=== PATIENT | male | born 1985 | race Caucasian/White ===

== ENCOUNTER 2017-05-10 10:06 | Inpatient (IN) | payer OTHER ==
[2017-05-10 11:13] VITALS: BMI 30.9
--- NOTE | 2017-05-10 12:46 | HP ---
COWS - Scale Resting Pulse: 1= [place] 81-100 Sweatin= Chills/Flushing Restless Observation: 3= Extraneous Movement Pupil Size: 2= Moderately Dilated Bone or Joint Aches: 4=Acute Joint/Muscle Pain Runny Nose/ Eye Tearin= Runny Nose/Eyes GI Upset > 30mins: 3= Vomiting/Diarrhea (N/V) Tremor Observation: 1= Tremor [place], Not Seen Yawning Observation: 1= 1-2x During Session Anxiety or Irritability: 2=Irritable/Anxious Goose Flesh Skin: 0=Smooth Skin COWS Score: 20 Admission ROS S - [facility] Chief Complaint: WITHDRAWAL SX FROM HEROIN Allergies/Adverse Reactions: Allergies Allergy/AdvReac Type Severity Reaction Status Date / Time No Known Allergies Allergy Verified 08/01/16 11:21 History of Present Illness: 31 Y/O MALE WITH A HX OF HEROIN,COCAINE DEPENDENCE AND PCP USE SEEKING DETOX TX. Exam Limitations: No Limitations - Ebola screening Have you traveled outside of the country in the last 21 days: No (N) Have you had contact with anyone from an Ebola affected area: No Have you been sick,other than usual withdrawal symptoms: No Do you have a fever: No - Review of Systems Constitutional: Chills, Night Sweats, Changes in sleep, Unintentional Wgt. Loss EENT: reports: Blurred Vision, Tearing, Nose Congestion Respiratory: reports: Shortness of Breath (ASTHMA HX), Wheezing Cardiac: reports: Lightheadedness GI: reports: Constipated, Diarrhea, Nausea, Vomiting, Abdominal cramping : reports: No Symptoms Reported Musculoskeletal: reports: Back Pain, Joint Pain, Muscle Pain Integumentary: reports: No Symptoms Reported Neuro: reports: Headache, Unsteady Gait, Dizziness Endocrine: reports: No Symptoms Reported Hematology: reports: No Symptoms Reported Psychiatric: reports: Orientated x3, Anxious Other Systems: Reviewed and Negative Patient History - Patient Medical History Hx Anemia: No Hx Asthma: Yes (MDI) Hx Chronic Obstructive Pulmonary Disease (COPD): No Hx Cardiac Disorders: No Hx Hypertension: No Hx Hypercholesterolemia: No HX Cerebrovascular Accident: No Hx Seizures: No Hx Diabetes: No Hx Gastrointestinal Disorders: Yes (TAKES TUMS) Hx Genitourinary Disorders: No Hx Sexually Transmitted Disorders: No Hx Renal Disease (ESRD): No Hx Thyroid Disease: No Hx Human Immunodeficiency Virus (HIV): No (NEGATIVE HX) Hx Hepatitis C: No Hx Depression: No (ANXIETY) Hx Suicide Attempt: No (DENIES) Hx Schizophrenia: No - Patient Surgical History Past Surgical History: Yes Hx Neurologic Surgery: No Hx Cataract Extraction: No Hx Cardiac Surgery: No Hx Lung Surgery: No Hx Breast Surgery: No Hx Breast Biopsy: No Hx Abdominal Surgery: Yes (ABD HERNIA REPAIR IN 2015) Hx Appendectomy: No Hx Cholecystectomy: No Hx Genitourinary Surgery: No Hx Orthopedic Surgery: No Anesthesia Reaction: No - PPD History Previous Implant?: Yes Documented Results: Negative w/o proof PPD to be Administered?: Yes - Reproductive History Patient is a Female of Child Bearing Age (11 -55 yrs old): No (MALE) - Smoking Cessation Smoking history: Current every day smoker Have you smoked in the past 12 months: Yes Aproximately how many cigarettes per day: 3 Hx Chewing Tobacco Use: No Initiated information on smoking cessation: Yes 'Breaking Loose' booklet given: 05/10/17 - Substance & Tx. History Hx Alcohol Use: No Hx Substance Use: Yes (HEROIN/COCAINE/PCP) Substance Use Type: Cocaine, Heroin Hx Substance Use Treatment: Yes (LAST TX AT [facility]) - Substances Abused Heroin Route: Injection Frequency: Daily Amount used: 10 BAGS Age of first use: 22 Date of Last Use: 05/09/17 Oxycontin Route: Oral Frequency: Daily Amount used: 1/30MG Age of first use: 22 Date of Last Use: 05/08/17 Family Disease History - Family Disease History Family History: Denies Admission Physical Exam S - Vital Signs Vital Signs: Vital Signs - 24 hr 05/10/17 11:12 Temperature 96 F L Pulse Rate 83 Respiratory 18 Rate Blood Pressure 135/75 - Physical General Appearance: Yes: Moderate Distress, Irritable, Anxious HEENTM: Yes: EOMI, Normocephalic, CRYSTAL, Pharynx Normal, Nasal Congestion, Rhinorrhea Respiratory: Yes: Chest Non-Tender, Lungs Clear, Normal Breath Sounds, No Respiratory Distress Neck: Yes: No masses,lesions,Nodules, Supple, Trachea in good position Breast: Yes: Breast Exam Deferred Cardiology: Yes: Regular Rhythm, Regular Rate, S1, S2 Abdominal: Yes: Normal Bowel Sounds, Non Tender, Soft Genitourinary: Yes: Other (N/C) Back: Yes: Within Normal Limits Musculoskeletal: Yes: full range of Motion, Gait Steady Extremities: Yes: Normal Range of Motion, Non-Tender Neurological: Yes: wiping cloth cutter II-XII NML intact, Fully Oriented, Alert, Motor Strength 5/5 Integumentary: Yes: Dry, Warm Lymphatic: Yes: Within Normal Limits - Diagnostic (1) Opioid dependence with withdrawal Current Visit: Yes Status: Acute (2) Cocaine dependence, uncomplicated Current Visit: Yes Status: Acute (3) PCP dependence Current Visit: Yes Status: Acute (4) Asthma Current Visit: Yes Status: Acute Qualifiers: Asthma severity: unspecified severity Asthma persistence: unspecified Asthma complication type: uncomplicated Qualified Code(s): J45.909 - Unspecified asthma, uncomplicated (5) History of heartburn Current Visit: Yes Status: Chronic Cleared for Admission [facility] - Detox or Rehab [facility] Level of Care: Medically Managed Detox Regimen/Protocol: Methadone [facility] Breath Alcohol Content Breath Alcohol Content: 0 Urine Drug Screen - Results Drug Screen Negative: No Urine Drug Screen Results: FRANCISCA-Cocaine, OPI-Opiates, PCP-Phencyclidine
[2017-05-10] MEDS ORDERED: MAGNESIUM CITRATE 300 ML BOTTLE PO PRN (12:57)
[2017-05-10] MEDS ORDERED: NICOTINE POLACRILEX 2 MG GUM BUC PRN (12:57)
[2017-05-10] MEDS ORDERED: MENTHOL/PHENOL 1 EACH UD MM PRN (12:57)
[2017-05-10] MEDS ORDERED: IBUPROFEN 400 MG TABLET (FP) PO PRN (12:57)
[2017-05-10] MEDS ORDERED: P-EPHED 60MG/TRIPROLIDI 2.5MG TABLET PO PRN (12:57)
[2017-05-10] MEDS ORDERED: MAGNESIUM HYDROX 2400MG/30ML ORAL SUSPENSION 30 ML CUP PO PRN (12:57)
[2017-05-10] MEDS ORDERED: guaiFENesin/D-METHORPHAN HB 10 ML UNIT-DOSE CUPS PO PRN (12:57)
[2017-05-10] MEDS ORDERED: ALBUTEROL SO4 18 GM HFA INHALER IH PRN (13:00)
[2017-05-10] MEDS ORDERED: METHADONE HCL 10 MG TABLET (FOR DETOX USE ONLY) PO ONE ×2 (13:55→23:00)
[2017-05-10] MEDS: CYCLOBENZAPRINE HCL 10 MG TABLET (FP) PO SCH ×2 (14:04→22:12)
[2017-05-10] MEDS: diazePAM 5 MG TABLET PO PRN ×2 (14:04→22:12)
[2017-05-10] MEDS: NICOTINE 14 MG/24 HOURS TOPICAL PATCH TD SCH (16:34)
[2017-05-10 17:12] LABS: HEMATOCRIT 42.2 % (35.4-49); HEMOGLOBIN 14.6 GM/dL (11.7-16.9); MCH 29.9 pg (25.7-33.7); MCHC 34.4 g/dl (32.0-35.9); MEAN CELL VOLUME 86.8 fl (80-96); MEAN PLT VOLUME 8.9 fl (7.5-11.1); PLATELET COUNT 217 K/MM3 (134-434); RBC 4.87 M/mm3 (4.00-5.60); RDW 13.2 % (11.9-15.9); WHITE BLOOD COUNT 7.8 K/mm3 (4.0-10.0)
[2017-05-10 17:29] LABS: CHLORIDE 106 mmol/L (98-107); POTASSIUM 3.9 mmol/L (3.5-5.1); SODIUM 141 mmol/L (136-145)
[2017-05-10 17:38] LABS: ALBUMIN 4.1 g/dl (3.4-5.0); ALK PHOS 77 U/L (45-117); ANION GAP 8 (8-16); BILIRUBIN,TOTAL 0.5 mg/dL (0.2-1.0); BLOOD UREA NITROGEN 20 mg/dL (7-18); CALCIUM 8.8 mg/dL (8.5-10.1); CO2 27 mmol/L (21-32); CREATININE 1.2 mg/dL (0.7-1.3); GLUCOSE,RANDOM 124 mg/dL (74-106); SGOT/AST 50 U/L (15-37); SGPT/ALT 56 U/L (12-78)
--- NOTE | 2017-05-10 17:41 | CONSULT ---
[facility] Psychiatric Consult - Data Date of interview: 05/10/17 Admission source: [facility] Identifying data: Readmission to [facility] for this 31 y/o male seeking detox treatment on for heroin,cocaine and phencyclidine dependence.Patient is single,a father of two,domiciled,unemployed and reportedly supported by relatives. Substance Abuse History: Discussed in this session.Patient,reluctantly,admits to active usage of cocaine,heroin and PCP on a daily basis. See details in the current [facility] report : Smoking history: Current every day smoker. Have you smoked in the past 12 months: Yes. Aproximately how many cigarettes per day: 3. Hx Chewing Tobacco Use: No. Initiated information on smoking cessation: Yes. 'Breaking Loose' booklet given: 05/10/17. - Substance & Tx. History. Hx Alcohol Use: No. Hx Substance Use: Yes (HEROIN/COCAINE/PCP). Substance Use Type: Cocaine, Heroin. Hx Substance Use Treatment: Yes (LAST TX AT [facility]). - Substances Abused. Heroin. Route: Injection. Frequency: Daily. Amount used: 10 BAGS. Age of first use: 22. Date of Last Use: 05/09/17. Oxycontin. Route: Oral. Frequency: Daily. Amount used: 1/30MG. Age of first use: 22. Date of Last Use: 05/08/17 Medical History: Bronchial asthma and a history of abdominal herniorraphy (2014) . Psychiatric History: Patient denies history of mental illness or psychiatric hospitalizations.Mr Kaur indicates no prior exposure to psychotropic medications or OPD care.No reported history of suicide attempts. Physical/Sexual Abuse/Trauma History: Patient denies. Additional Comment: Urine Drug Screen Results: FRANCISCA-Cocaine, OPI-Opiates, PCP- Phencyclidine.Noted. Mental Status Exam - Mental Status Exam Alert and Oriented to: Time, Place, Person Cognitive Function: Good Patient Appearance: Disheveled (forearms covered with tattoos) Mood: Angry, Hostile, Withdrawn, Irritable Affect: Mood Congruent Patient Behavior: Fatigued, Uncooperative (dismissive of staff,derogatory and profane), Resitive to Care Speech Pattern: Clear, Inappropriate Voice Loudness: Moderately Loud (for a brief period ; patient did react negatively to being called for medications and routine procedures ) Thought Process: Goal Oriented Thought Disorder: Not Present Hallucinations: Denies Suicidal Ideation: Denies Homicidal Ideation: Denies Insight/Judgement: Poor Sleep: Poorly, Difficulty falling asleep Appetite: Good Muscle strength/Tone: Normal Gait/Station: Normal Psychiatric Findings - Problem List ([place] 1, 2,3) (1) Opioid dependence with withdrawal Current Visit: Yes Status: Acute (2) Cocaine dependence, uncomplicated Current Visit: Yes Status: Acute (3) PCP dependence Current Visit: Yes Status: Acute (4) Nicotine dependence Current Visit: Yes Status: Acute (5) Substance induced mood disorder Current Visit: Yes Status: Suspected (6) Personality disorder, unspecified Current Visit: Yes Status: Suspected (7) Insomnia Current Visit: Yes Status: Acute - Initial Treatment Plan Initial Treatment Plan: Previous records are reviewed.Psychoeducation not suitable at this time (a context of adversarial attitude and behavioral dyscontrol).Offered but patient is not receptive to teaching.Detoxification initiated on admission.Patient has clearly DECLINED any psychotropic drugs not necessary for detoxification purposes.Limits set.Observation.
[2017-05-10 17:45] LABS: URINE APPEARANCE CLEAR; URINE BILIRUBIN NEGATIVE (NEGATIVE); URINE BLOOD NEGATIVE (NEGATIVE); URINE COLOR YELLOW; URINE GLUCOSE (UA) NEGATIVE (NEGATIVE); URINE KETONE TRACE (NEGATIVE); URINE LEUK ESTERASE NEGATIVE (NEGATIVE); URINE NITRITE NEGATIVE (NEGATIVE); URINE PROTEIN NEGATIVE (NEGATIVE)
[2017-05-10] MEDS: THIAMINE HCL 100 MG TABLET (FP) PO SCH (22:12)
[2017-05-10] MEDS: cloNIDine HCL 0.1 MG TABLET PO SCH (22:12)
[2017-05-11] MEDS: diazePAM 5 MG TABLET PO PRN ×4 (05:40→22:32)
[2017-05-11] MEDS: MAG HYDROX/AL HYDROX/SIMETH 30 ML UNIT-DOSE CUP PO PRN ×2 (05:40→17:16)
[2017-05-11] MEDS: CYCLOBENZAPRINE HCL 10 MG TABLET (FP) PO SCH ×4 (08:07→22:44)
[2017-05-11] MEDS ORDERED: METHADONE HCL 10 MG TABLET (FOR DETOX USE ONLY) PO ONE (10:00)
[2017-05-11] MEDS: cloNIDine HCL 0.1 MG TABLET PO SCH ×3 (10:38→22:42)
[2017-05-11] MEDS: NICOTINE 14 MG/24 HOURS TOPICAL PATCH TD SCH (10:38)
[2017-05-11] MEDS: PRENATAL VITAMINS W/ FOLIC ACID TABLET (FP) PO SCH (10:38)
[2017-05-11] MEDS ORDERED: PNEUMOCOCCAL 23 VACCINE 0.5 ML VIAL IM ONE (12:00)
[2017-05-11] MEDS ORDERED: PNEUMOC 13-VAL CONJ-DIP CRM/PF 0.5 ML DISP.SYRIN IM ONE (12:00)
[2017-05-11] MEDS ORDERED: FLU VACCINE QUAD 60 MCG/0.5 ML (MDV 17-18) IM ONE (12:00)
--- NOTE | 2017-05-11 12:24 | PN ---
BHS COWS - Scale Resting Pulse: 0= [place] 80 or Below Sweatin= Chills/Flushing Restless Observation: 1= Difficult to Sit Still Pupil Size: 0= Normal to Room Light Bone or Joint Aches: 2= Severe Diffuse Aches Runny Nose/ Eye Tearin= Nasal Congestion GI Upset > 30mins: 1= Stomach Cramp Tremor Observation of Outstretched Hands: 0= None Yawning Observation: 1= 1-2x During Session Anxiety or Irritability: 4=Extreme Anxiety Goose Flesh Skin: 3=Piloerection COWS Score: 14 BHS Progress Note (SOAP) Subjective: Stomach Cramping, Fatigue, Anxious, Sweating. Objective: PT. A & O X 3, OBSERVED AMBULATING ON UNIT. NO ACUTE DISTRESS. 05/11/17 12:22 Vital Signs Temperature 97.3 F L 05/11/17 09:27 Pulse Rate 72 05/11/17 09:27 Respiratory Rate 18 05/11/17 09:27 Blood Pressure 105/65 05/11/17 09:27 O2 Sat by Pulse Oximetry (%) Laboratory Tests 05/10/17 05/10/17 05/10/17 13:00 13:00 13:00 WBC 7.8 D RBC 4.87 Hgb 14.6 Hct 42.2 MCV 86.8 MCH 29.9 MCHC 34.4 RDW 13.2 Plt Count 217 D MPV 8.9 Sodium 141 Potassium 3.9 Chloride 106 Carbon Dioxide 27 Anion Gap 8 BUN 20 H D Creatinine 1.2 Creat Clearance w eGFR > 60 Random Glucose 124 H Calcium 8.8 Total Bilirubin 0.5 AST 50 H D ALT 56 Alkaline Phosphatase 77 D Total Protein 7.0 Albumin 4.1 Urine Color Urine Appearance Urine pH Ur Specific [place] Urine Protein Urine Glucose (UA) Urine Ketones Urine Blood Urine Nitrite Urine Bilirubin Urine Urobilinogen Ur Leukocyte Esterase RPR Titer HIV 1&2 Antibody Screen Negative HIV P24 Antigen Negative 05/10/17 05/10/17 13:00 14:30 WBC RBC Hgb Hct MCV MCH MCHC RDW Plt Count MPV Sodium Potassium Chloride Carbon Dioxide Anion Gap BUN Creatinine Creat Clearance w eGFR Random Glucose Calcium Total Bilirubin AST ALT Alkaline Phosphatase Total Protein Albumin Urine Color Yellow Urine Appearance Clear Urine pH 5.0 Ur Specific [place] 1.030 Urine Protein Negative Urine Glucose (UA) Negative Urine Ketones Trace H Urine Blood Negative Urine Nitrite Negative Urine Bilirubin Negative Urine Urobilinogen 2.0 Ur Leukocyte Esterase Negative RPR Titer Nonreactive HIV 1&2 Antibody Screen HIV P24 Antigen LABS NOTED. Assessment: 05/11/17 12:23 WITHDRAWAL SYMPTOMS. Plan: CONTINUE DETOX. INCREASE DAILY PO FLUID INTAKE.
--- NOTE | 2017-05-11 13:13 | EKG ---
Test Reason : Blood Pressure : / mmHG Vent. Rate : 069 BPM Atrial Rate : 069 BPM P-R Int : 118 ms QRS Dur : 094 ms QT Int : 434 ms P-R-T Axes : 038 006 000 degrees QTc Int : 465 ms SINUS RHYTHM WITH MARKED SINUS ARRHYTHMIA NONSPECIFIC T WAVE ABNORMALITY PROLONGED QT ABNORMAL ECG WHEN COMPARED WITH ECG OF 15-OCT-2014 23:34, PREMATURE ATRIAL COMPLEXES ARE NO LONGER PRESENT NONSPECIFIC T WAVE ABNORMALITY NOW EVIDENT IN LATERAL LEADS Confirmed by EDIL ARMSTRONG MD ([id number]) on 05/11/2017 1:12:48 PM Referred By: Confirmed By:EDIL ARMSTRONG MD
[2017-05-11] MEDS: THIAMINE HCL 100 MG TABLET (FP) PO SCH (22:30)
[2017-05-11] MEDS: LOPERAMIDE HCL 2 MG CAPSULE PO PRN (22:31)
[2017-05-11] MEDS: ACETAMINOPHEN 325 MG TABLET (FP) PO PRN (22:32)
[2017-05-12] MEDS: CYCLOBENZAPRINE HCL 10 MG TABLET (FP) PO SCH ×3 (06:35→22:21)
[2017-05-12] MEDS: ACETAMINOPHEN 325 MG TABLET (FP) PO PRN (07:16)
[2017-05-12] MEDS ORDERED: METHADONE HCL 5 MG TABLET (FOR DETOX USE ONLY) PO ONE (10:00)
[2017-05-12] MEDS: PRENATAL VITAMINS W/ FOLIC ACID TABLET (FP) PO SCH (10:28)
[2017-05-12] MEDS: cloNIDine HCL 0.1 MG TABLET PO SCH ×2 (10:28→22:21)
[2017-05-12] MEDS: diazePAM 5 MG TABLET PO PRN ×4 (10:29→22:50)
[2017-05-12] MEDS: LOPERAMIDE HCL 2 MG CAPSULE PO PRN (10:29)
[2017-05-12] MEDS: NICOTINE 14 MG/24 HOURS TOPICAL PATCH TD SCH (10:58)
[2017-05-12] MEDS ORDERED: ONDANSETRON *ODT* 4 MG TABLET SL PRN (12:30)
--- NOTE | 2017-05-12 12:31 | PN ---
BHS COWS - Scale Resting Pulse: 0= [place] 80 or Below Sweatin= Chills/Flushing Restless Observation: 1= Difficult to Sit Still Pupil Size: 0= Normal to Room Light Bone or Joint Aches: 2= Severe Diffuse Aches Runny Nose/ Eye Tearin= None GI Upset > 30mins: 2= Nausea/Diarrhea Tremor Observation of Outstretched Hands: 0= None Yawning Observation: 1= 1-2x During Session Anxiety or Irritability: 4=Extreme Anxiety Goose Flesh Skin: 3=Piloerection COWS Score: 14 BHS Progress Note (SOAP) Subjective: Stomach Cramping, Sweating, Anxious, Fatigue, Nausea / Dry Heaving, Diarrhea. Objective: PT. A & O X 3, OBSERVED AMBULATING ON UNIT. NO ACUTE DISTRESS. 05/12/17 12:32 Vital Signs Temperature 98.8 F 05/12/17 09:26 Pulse Rate 77 05/12/17 09:26 Respiratory Rate 18 05/12/17 09:26 Blood Pressure 115/70 05/12/17 09:26 O2 Sat by Pulse Oximetry (%) Laboratory Tests 05/10/17 05/10/17 05/10/17 13:00 13:00 13:00 WBC 7.8 D RBC 4.87 Hgb 14.6 Hct 42.2 MCV 86.8 MCH 29.9 MCHC 34.4 RDW 13.2 Plt Count 217 D MPV 8.9 Sodium 141 Potassium 3.9 Chloride 106 Carbon Dioxide 27 Anion Gap 8 BUN 20 H D Creatinine 1.2 Creat Clearance w eGFR > 60 Random Glucose 124 H Calcium 8.8 Total Bilirubin 0.5 AST 50 H D ALT 56 Alkaline Phosphatase 77 D Total Protein 7.0 Albumin 4.1 Urine Color Urine Appearance Urine pH Ur Specific [place] Urine Protein Urine Glucose (UA) Urine Ketones Urine Blood Urine Nitrite Urine Bilirubin Urine Urobilinogen Ur Leukocyte Esterase RPR Titer HIV 1&2 Antibody Screen Negative HIV P24 Antigen Negative 05/10/17 05/10/17 13:00 14:30 WBC RBC Hgb Hct MCV MCH MCHC RDW Plt Count MPV Sodium Potassium Chloride Carbon Dioxide Anion Gap BUN Creatinine Creat Clearance w eGFR Random Glucose Calcium Total Bilirubin AST ALT Alkaline Phosphatase Total Protein Albumin Urine Color Yellow Urine Appearance Clear Urine pH 5.0 Ur Specific [place] 1.030 Urine Protein Negative Urine Glucose (UA) Negative Urine Ketones Trace H Urine Blood Negative Urine Nitrite Negative Urine Bilirubin Negative Urine Urobilinogen 2.0 Ur Leukocyte Esterase Negative RPR Titer Nonreactive HIV 1&2 Antibody Screen HIV P24 Antigen LABS NOTED. Assessment: 05/12/17 12:32 WITHDRAWAL SYMPTOMS. Plan: CONTINUE DETOX. PRN ZOFRAN SL FOR NAUSEA. PRN IMMODIUM FOR DIARRHEA. INCREASE DAILY PO FLUID INTAKE.
[2017-05-12] MEDS: MAG HYDROX/AL HYDROX/SIMETH 30 ML UNIT-DOSE CUP PO PRN (19:54)
[2017-05-12] MEDS: THIAMINE HCL 100 MG TABLET (FP) PO SCH (22:21)
[2017-05-13] MEDS: diazePAM 5 MG TABLET PO PRN (05:56)
--- NOTE | 2017-05-13 07:02 | PN ---
S Progress Note Note: informed client was caught stealing employee property. administrative dc
--- NOTE | 2017-05-13 07:06 | DS ---
[facility] Detox Discharge Summary Admission Date: 05/10/17 Discharge Date: 05/13/17 - History Present History: Cocaine Dependence, Opioid Dependence, Pcp Dependence Pertinent Past History: ASTHMA NICOTINE DEP - Physical Exam Results Vital Signs: Vital Signs Temperature 98.1 F 05/12/17 22:30 Pulse Rate 79 05/12/17 22:30 Respiratory Rate 18 05/13/17 03:28 Blood Pressure 127/63 05/12/17 22:30 O2 Sat by Pulse Oximetry (%) Pertinent Admission Physical Exam Findings: WITHDRAWAL SX'S - Treatment Hospital Course: Responded well, Discharged Condition Good - Medication Discharge Medications: Ambulatory Orders Albuterol Sulfate Inhaler - [Ventolin Hfa Inhaler -] 2 inh PO Q4H PRN 08/01/16 - Diagnosis (1) Asthma Current Visit: Yes Status: Acute Qualifiers: Asthma severity: unspecified severity Asthma persistence: unspecified Asthma complication type: uncomplicated Qualified Code(s): J45.909 - Unspecified asthma, uncomplicated (2) Cocaine dependence, uncomplicated Current Visit: Yes Status: Acute (3) Nicotine dependence Current Visit: Yes Status: Acute (4) Opioid dependence with withdrawal Current Visit: Yes Status: Acute (5) PCP dependence Current Visit: Yes Status: Acute (6) History of heartburn Current Visit: Yes Status: Chronic (7) Personality disorder, unspecified Current Visit: Yes Status: Suspected (8) Substance induced mood disorder Current Visit: Yes Status: Suspected - AMA Did Patient Leave Against Medical Advice: No (ADMINISTRATIVE DC; CLIENT CAUGHT STEALING EMPLOYEE PROPERTY)
[2017-05-13 07:27] VITALS: BP 103/61; PULSE 70; TEMP 98.2
[2017-05-13] MEDS: CYCLOBENZAPRINE HCL 10 MG TABLET (FP) PO SCH (07:32)
[2017-05-13] MEDS ORDERED: METHADONE HCL 5 MG TABLET (FOR DETOX USE ONLY) PO ONE (10:00)
[2017-05-14] MEDS ORDERED: METHADONE HCL 10 MG TABLET (FOR DETOX USE ONLY) PO ONE (10:00)
[2017-05-15] MEDS ORDERED: METHADONE HCL 5 MG TABLET (FOR DETOX USE ONLY) PO ONE (06:00)
== END 2017-05-13 07:00 | disposition home or self-care (01) | DRG 773 ==
LOC: YASAS 10:06 → Y3N 12:28
PROVIDERS: ADMIT Internal Medicine; ATTEND Internal Medicine
PROC: HZ2ZZZZ Detoxification Services for Substance Abuse Treatment (ICD-10-PCS; principal; 2017-05-10)
DX: F11.23 Opioid dependence with withdrawal (principal); F14.20 Cocaine dependence, uncomplicated; F16.20 Hallucinogen dependence, uncomplicated; F17.210 Nicotine dependence, cigarettes, uncomplicated; F60.9 Personality disorder, unspecified; F19.24 Other psychoactive substance dependence with psychoactive substance-induced mood disorder; F91.8 Other conduct disorders; J45.909 Unspecified asthma, uncomplicated; G47.00 Insomnia, unspecified; R12 Heartburn
CPT/HCPCS: 36415; 80053; 81003; 85027; 86593; 87389; 90688; 90732; 93005; 93010; G0008; G0009

== ENCOUNTER 2017-05-14 23:31 | Emergency (ER) | payer OTHER ==
--- NOTE | 2017-05-14 23:44 | PDOC ---
History of Present Illness - General History Source: Patient Exam Limitations: No Limitations - History of Present Illness Initial Comments: 05/15/17 00:51 The patient is a year 31 old male, with a significant past medical history of asthma, GERD, cocaine use, PCP use, and heroin use, who presents to the emergency department via ems stating that he passed out (patient is alert and oriented x3 and has alcohol on his breath), and states I don't feel good. Patient has been drinking today and then called EMS. When they arrived he told them that he had been passing out all day. He states that he also has nasal congestion and left his detox treatment AMA from [facility] after one day after having a dispute with the staff. Patient was caught stealing employee property . Since 2012 the patient has a history of drug abuse, suicide attempts, and has been in and out of detox Allergies: none Past surgical history: Hernia repair (2014) Social history: Current everyday smoker, drinks socially, uses cocaine and heroin <Gely Ceron - Last Filed: 05/15/17 00:51> <Jeny Foy - Last Filed: 05/15/17 16:29> - General Chief Complaint: Alcohol intoxication Stated Complaint: SYNCOPE Time Seen by Provider: 05/14/17 23:36 Past History <Gely Ceron - Last Filed: 05/15/17 00:51> - Past Medical History Anemia: No Asthma: Yes (MDI) Cardiac Disorders: No CVA: No COPD: No Diabetes: No GI Disorders: Yes (TAKES TUMS) Disorders: No HTN: No Hypercholesterolemia: No Kidney Stones: No Seizures: No Thyroid Disease: No - Surgical History Abdominal Surgery: Yes (ABD HERNIA REPAIR IN 2014) Appendectomy: No Cardiac Surgery: No Cholecystectomy: No Lung Surgery: No Neurologic Surgery: No Orthopedic Surgery: No - Reproductive History Testicular Surgery: No - Suicide/Smoking/Psychosocial Hx Smoking Status: No Smoking History: Current every day smoker Have you smoked in the past 12 months: Yes Number of Cigarettes Smoked Daily: 3 Information on smoking cessation initiated: No 'Breaking Loose' booklet given: 05/10/17 Hx Alcohol Use: No Drug/Substance Use Hx: Yes (heroin, cocaine) Substance Use Type: Cocaine, Heroin Hx Substance Use Treatment: Yes (LAST TX AT [facility]) <Jeny Foy - Last Filed: 05/15/17 16:29> - Past Medical History Allergies/Adverse Reactions: Allergies Allergy/AdvReac Type Severity Reaction Status Date / Time No Known Allergies Allergy Verified 05/14/17 23:33 Home Medications: Ambulatory Orders NK [No Known Home Medication] 05/15/17 Review of Systems - Review of Systems Able to Perform ROS?: Yes Comments:: 05/15/17 00:53 CONSTITUTIONAL: +"I don't feel well", +passing out Absent: fever, no chills, no fatigue EYES: Absent: visual changes ENT:+Nasal congestion Absent: ear pain, no sore throat CARDIOVASCULAR: Absent: chest pain, no palpitations RESPIRATORY: Absent: cough, no SOB GI: Absent: abdominal pain, no nausea, no vomiting, no constipation, no diarrhea GENITOURINARY: Absent: dysuria, no frequency, no hematuria MUSCULOSKELETAL: Absent: back pain, no arthralgia, no myalgia SKIN: Absent: rash NEURO: Absent: headache <Gely Ceron - Last Filed: 05/15/17 00:51> *Physical Exam - Vital Signs Last Vital Signs Temp Pulse Resp BP Pulse Ox 91 H 18 141/78 98 05/14/17 23:41 05/14/17 23:41 05/14/17 23:41 05/14/17 23:41 - Physical Exam Comments: 05/15/17 00:53 GENERAL: +Alcohol on breath No apparent distress. HEENT: +Nasal congestion Normocephalic, atraumatic. PERRL, EOM intact. CARDIOVASCULAR: Normal S1, S2. Regular rate and rhythm. PULMONARY: Clear to auscultation bilaterally. ABDOMEN: Soft, non-distended, non-tender. EXTREMITIES: Normal ROM in all four extremities. No gross deformities. SKIN: Warm, dry. No rash NEUROLOGICAL: No focal neurological deficits. Alert and oriented. <Gely Ceron - Last Filed: 05/15/17 00:51> - Vital Signs Last Vital Signs Temp Pulse Resp BP Pulse Ox 91 H 18 141/78 98 05/14/17 23:41 05/14/17 23:41 05/14/17 23:41 05/14/17 23:41 <Jeny Foy - Last Filed: 05/15/17 16:29> Medical Decision Making - Medical Decision Making 05/15/17 00:32 This 31-year-old male brought in by ambulance by paramedics who said he walked out of a local deli when the ambulance pulled up. He stated he had been passing out multiple times during the day. He is alert and conversant but has alcohol on breath. He is totally able to participate in his ROS. Social history: occasionally uses etoh, smokes tobacco daily ,single,father of 2 children,domiciled,unemployed. History of using cocaine,heroin and pcp HPI Patient left AMA from the [facility] detox center yesterday after having a dispute with the staff. PMH asthma PSH hernia repair PE no evidence of trauma ekg NSR @ 73 bpm,prolonged QT. No changes from previous ekg done on Apr05/15/17 01:47 pt's alcohol level is negligible PT reassessment <Jeny Foy - Last Filed: 05/15/17 16:29> *DC/Admit/Observation/Transfer - Attestations Scribe Attestion: 05/15/17 00:54 Documentation prepared by POLI Edward, acting as pediatrician/medical doctor for Jeny Foy MD. <Gely Ceron - Last Filed: 05/15/17 00:51> <Jeny Foy - Last Filed: 05/15/17 16:29> Diagnosis at time of Disposition: Syncope - Discharge Dispostion Disposition: HOME Condition at time of disposition: Improved - Referrals Referrals: [facility] [place] [facility] at [place] [Provider Group] - Patient Instructions Printed Discharge Instructions: DI for Syncope in Adults (Fainting) Additional Instructions: Return to the emergency department immediately with ANY new, persistent or worsening symptoms. You MUST call and follow up with your doctor tomorrow for further evaluation of your symptoms. Results were discussed with you. Please make sure your doctor reviews the results of your emergency evaluation. If you had any xrays during your visit, it was read preliminarily by myself, a Radiologist will review it and if there are any additional findings we will call you.
[2017-05-15 00:03] VITALS: BMI 28.3
--- NOTE | 2017-05-15 04:36 | PDOC ---
*Physical Exam - Vital Signs Last Vital Signs Temp Pulse Resp BP Pulse Ox 91 H 18 141/78 98 05/14/17 23:41 05/14/17 23:41 05/14/17 23:41 05/14/17 23:41 ED Treatment Course - ADDITIONAL ORDERS Additional order review: Laboratory Results 05/15/17 00:28 Alcohol, Quantitative < 5.0 Medical Decision Making - Medical Decision Making 05/15/17 04:34 pt signed out to me from dr. Foy. ready for dc ?syncopal episodes - ekg wnl here Pt feeling improved will dc the pt with pmd fu return precautions were discussed *DC/Admit/Observation/Transfer Diagnosis at time of Disposition: Syncope Qualifiers: Syncope type: unspecified Qualified Code(s): R55 - Syncope and collapse - Discharge Dispostion Disposition: HOME Condition at time of disposition: Improved Admit: No - Referrals [place] [facility] [place] Group] - Patient Instructions Printed Discharge Instructions: DI for Syncope in Adults (Fainting) Additional Instructions: Return to the emergency department immediately with ANY new, persistent or worsening symptoms. You MUST call and follow up with your doctor tomorrow for further evaluation of your symptoms. Results were discussed with you. Please make sure your doctor reviews the results of your emergency evaluation. If you had any xrays during your visit, it was read preliminarily by myself, a Radiologist will review it and if there are any additional findings we will call you. - Post Discharge Activity
[2017-05-15 06:52] VITALS: BP 110/72; PULSE 84
--- NOTE | 2017-05-15 08:46 | EKG ---
Test Reason : Blood Pressure : / mmHG Vent. Rate : 073 BPM Atrial Rate : 073 BPM P-R Int : 132 ms QRS Dur : 094 ms QT Int : 452 ms P-R-T Axes : 020 001 003 degrees QTc Int : 497 ms NORMAL SINUS RHYTHM PROLONGED QT ABNORMAL ECG WHEN COMPARED WITH ECG OF 10-MAY-2017 15:10, NONSPECIFIC T WAVE ABNORMALITY NO LONGER EVIDENT IN LATERAL LEADS CLINICAL CORRELATION IS RECOMMENDED Confirmed by FADIA ALBERTO, SADIE ([id number]) on 05/15/2017 8:46:38 AM Referred By: Confirmed By:SADIE LOAIZA MD
== END 2017-05-15 06:54 | disposition home or self-care (01) ==
LOC: JER 23:31
DX: R55 Syncope and collapse (principal); F11.10 Opioid abuse, uncomplicated; F10.10 Alcohol abuse, uncomplicated; F14.10 Cocaine abuse, uncomplicated; F16.10 Hallucinogen abuse, uncomplicated; F17.210 Nicotine dependence, cigarettes, uncomplicated; K21.9 Gastro-esophageal reflux disease without esophagitis
CPT/HCPCS: 36415; 80307; 93005; 93010; 99282-25

== ENCOUNTER 2017-06-29 10:36 | Inpatient (IN) | payer OTHER ==
[2017-06-29 11:44] VITALS: BMI 33.3
--- NOTE | 2017-06-29 13:38 | HP ---
COWS - Scale Resting Pulse: 1= [place] 81-100 Sweatin=Flushed/Facial Moisture Restless Observation: 1= Difficult to Sit Still Pupil Size: 0= Normal to Room Light Bone or Joint Aches: 2= Severe Diffuse Aches Runny Nose/ Eye Tearin= None GI Upset > 30mins: 2= Nausea/Diarrhea Tremor Observation: 2= Slight Tremor Visible Yawning Observation: 1= 1-2x During Session Anxiety or Irritability: 4=Extreme Anxiety Goose Flesh Skin: 0=Smooth Skin COWS Score: 15 Admission ROS S - HPI Chief Complaint: "I have a drug problem." Patient is here to Detox from Heroin. Allergies/Adverse Reactions: Allergies Allergy/AdvReac Type Severity Reaction Status Date / Time No Known Allergies Allergy Verified 06/29/17 12:54 History of Present Illness: Patient is a 31 YO male here to Detox from Heroin. Patient has had several previous Detox admissions at [facility] (Last:04/2017, Did Not complete). Patient completed a 28-Day Rehab Program at [facility] ([place] , [place] in 06/2017. Longest period of non-drug use in recent years: approx. 2 years (2013- 2015). Exam Limitations: No Limitations - Ebola screening Have you traveled outside of the country in the last 21 days: No (N) Have you had contact with anyone from an Ebola affected area: No Have you been sick,other than usual withdrawal symptoms: No Do you have a fever: No - Review of Systems Constitutional: Chills, Diaphoresis, Fever, Loss of Appetite, Malaise, Night Sweats, Changes in sleep EENT: reports: Nose Congestion, Sinus Pressure Respiratory: reports: No Symptoms reported Cardiac: reports: Syncope (Last episode: approx. 2 days ago; hit head, was evaluated at ER.) GI: reports: Diarrhea, Poor Appetite : reports: No Symptoms Reported Musculoskeletal: reports: No Symptoms Reported Integumentary: reports: No Symptoms Reported Neuro: reports: Tremors Endocrine: reports: No Symptoms Reported Hematology: reports: No Symptoms Reported Psychiatric: reports: Judgement Intact, Mood/Affect Appropiate, Anxious, Depressed (No Previous Treatment.), Disorientated (To Current Day / Date.) Other Systems: Reviewed and Negative Patient History - Patient Medical History Hx Anemia: No Hx Asthma: Yes (Uses Albuterol / Ventolin Inhaler PRN.) Hx Chronic Obstructive Pulmonary Disease (COPD): No Hx Cancer: No Hx Cardiac Disorders: No Hx Congestive Heart Failure: No Hx Hypertension: No Hx Hypercholesterolemia: No Hx Pacemaker: No HX Cerebrovascular Accident: No Hx Seizures: No Hx Dementia: No Hx Diabetes: No Hx Gastrointestinal Disorders: No Hx Liver Disease: No Hx Genitourinary Disorders: No Hx Sexually Transmitted Disorders: No Hx Renal Disease (ESRD): No Hx Thyroid Disease: No Hx Human Immunodeficiency Virus (HIV): No (Last Tested: 04/2017: NEGATIVE.) Hx Hepatitis C: No (Last Tested: 2016: NEGATIVE.) Hx Depression: Yes (No Previous Treatment.) Hx Suicide Attempt: No (PATIENT DENIES CURRENT SI / HI.) Hx Bipolar Disorder: No Hx Schizophrenia: No Other Medical History: DENIES. - Patient Surgical History Past Surgical History: Yes Hx Neurologic Surgery: No Hx Cataract Extraction: No Hx Cardiac Surgery: No Hx Lung Surgery: No Hx Breast Surgery: No Hx Breast Biopsy: No Hx Abdominal Surgery: Yes (ABD HERNIA REPAIR IN 2014) Hx Appendectomy: No Hx Cholecystectomy: No Hx Genitourinary Surgery: No Hx Section: No Hx Orthopedic Surgery: No Anesthesia Reaction: No - PPD History Previous Implant?: Yes Documented Results: Negative w/o proof Implanted On Prior [facility] Admission?: Yes PPD to be Administered?: Yes - Reproductive History Patient is a Female of Child Bearing Age (11 -55 yrs old): No (PATIENT IS MALE.) - Smoking Cessation Smoking history: Former smoker Have you smoked in the past 12 months: Yes If you are a former smoker, when did you quit?: Approx. 2 weeks ago. Cigars Per Day: 0 Hx Chewing Tobacco Use: No Initiated information on smoking cessation: Yes 'Breaking Loose' booklet given: 06/29/17 (GIVEN TO PATIENT.) - Substance & Tx. History Hx Alcohol Use: No Hx Substance Use: Yes Substance Use Type: Cocaine, Heroin Hx Substance Use Treatment: Yes (Previous Detox admissions at [facility] (Last:04/2017 );Rehab@ [facility]: 06/01) - Substances Abused Heroin Route: Injection Frequency: Daily Amount used: 8-9 bags Age of first use: 29 Date of Last Use: 06/28/17 Cocaine Route: Inhalation Frequency: 1-2 times per week Amount used: $200 Age of first use: 19 Date of Last Use: 06/28/17 Family Disease History - Family Disease History Family History: Denies Admission Physical Exam [facility] - Vital Signs Vital Signs: Vital Signs - 24 hr 06/29/17 11:41 Pulse Rate 86 Respiratory 18 Rate Blood Pressure 154/79 - Physical General Appearance: Yes: Nourished, Appropriately Dressed, Moderate Distress, Tremorous, Sweating, Anxious HEENTM: Yes: Hearing grossly Normal, Normocephalic, Normal Voice, CRYSTAL, Pharynx Normal Respiratory: Yes: Chest Non-Tender, Lungs Clear, No Respiratory Distress, No Accessory Muscle Use Neck: Yes: No masses,lesions,Nodules, Supple, Trachea in good position Breast: Yes: Breast Exam Deferred Cardiology: Yes: Regular Rhythm, Regular Rate, S1, S2 Abdominal: Yes: Normal Bowel Sounds, Non Tender, Soft, Protuberent Genitourinary: Yes: Within Normal Limits Back: Yes: Normal Inspection Musculoskeletal: Yes: full range of Motion, Gait Steady Extremities: Yes: Normal Capillary Refill, Normal Range of Motion, Non-Tender, Tremors Neurological: Yes: Alert, Normal Mood/Affect, Normal Response, Disoriented (To Current Day / Date.) Integumentary: Yes: Normal Color, Warm, Moist, Track Dejesus (Noted on Right Forearm and Cubital Crease. Swelling and erythema noted.) Lymphatic: Yes: Within Normal Limits - Diagnostic (1) Anxiety and depression Current Visit: Yes Status: Chronic (2) Abscess of right upper extremity Current Visit: Yes Status: Acute (3) Cocaine dependence, uncomplicated Current Visit: Yes Status: Acute (4) Nicotine dependence Current Visit: Yes Status: Chronic Qualifiers: Nicotine product type: cigarettes Substance use status: uncomplicated Qualified Code(s): F17.210 - Nicotine dependence, cigarettes, uncomplicated (5) Opioid dependence with withdrawal Current Visit: Yes Status: Acute (6) Asthma Current Visit: Yes Status: Chronic Qualifiers: Asthma severity: mild Asthma persistence: intermittent Asthma complication type: uncomplicated Qualified Code(s): J45.20 - Mild intermittent asthma, uncomplicated Cleared for Admission S - Detox or Rehab S Level of Care: Medically Managed Detox Regimen/Protocol: Methadone S Breath Alcohol Content Breath Alcohol Content: 0 Urine Drug Screen - Results Drug Screen Negative: No Urine Drug Screen Results: FRANCISCA-Cocaine, OPI-Opiates, MET-Methamphetamine, PCP- Phencyclidine, BZO-Benzodiazepines
[2017-06-29] MEDS ORDERED: guaiFENesin/D-METHORPHAN HB 10 ML UNIT-DOSE CUPS PO PRN (14:00)
[2017-06-29] MEDS ORDERED: MAGNESIUM HYDROX 2400MG/30ML ORAL SUSPENSION 30 ML CUP PO PRN (14:00)
[2017-06-29] MEDS ORDERED: MAGNESIUM CITRATE 300 ML BOTTLE PO PRN (14:00)
[2017-06-29] MEDS ORDERED: P-EPHED 60MG/TRIPROLIDI 2.5MG TABLET PO PRN (14:00)
[2017-06-29] MEDS ORDERED: LOPERAMIDE HCL 2 MG CAPSULE PO PRN (14:00)
[2017-06-29] MEDS ORDERED: MENTHOL/PHENOL 1 EACH UD MM PRN (14:00)
[2017-06-29] MEDS ORDERED: IBUPROFEN 400 MG TABLET (FP) PO PRN (14:00)
[2017-06-29] MEDS ORDERED: METHADONE HCL 10 MG TABLET (FOR DETOX USE ONLY) PO ONE ×2 (14:00→23:00)
[2017-06-29] MEDS ORDERED: ALBUTEROL SO4 18 GM HFA INHALER IH PRN (14:03)
[2017-06-29] MEDS: SULFAMETHOXAZOLE/TRIMETHOPRIM 800MG/160MG D.S. TABLET PO SCH ×2 (15:31→22:30)
[2017-06-29] MEDS: diazePAM 5 MG TABLET PO PRN ×2 (15:31→20:50)
[2017-06-29 18:09] LABS: HEMATOCRIT 39.8 % (35.4-49); HEMOGLOBIN 13.8 GM/dL (11.7-16.9); MCH 29.7 pg (25.7-33.7); MCHC 34.7 g/dl (32.0-35.9); MEAN CELL VOLUME 85.7 fl (80-96); MEAN PLT VOLUME 8.9 fl (7.5-11.1); PLATELET COUNT 207 K/MM3 (134-434); RBC 4.65 M/mm3 (4.00-5.60); RDW 14.3 % (11.9-15.9); WHITE BLOOD COUNT 6.8 K/mm3 (4.0-10.0)
[2017-06-29 18:16] LABS: URINE APPEARANCE TURBID; URINE BILIRUBIN NEGATIVE (NEGATIVE); URINE BLOOD NEGATIVE (NEGATIVE); URINE GLUCOSE (UA) NEGATIVE (NEGATIVE); URINE KETONE NEGATIVE (NEGATIVE); URINE LEUK ESTERASE NEGATIVE (NEGATIVE); URINE NITRITE NEGATIVE (NEGATIVE); URINE PROTEIN NEGATIVE (NEGATIVE); URINE UROBILINOGEN NEGATIVE mg/dL (0.2-1.0)
[2017-06-29 18:33] LABS: URINE COLOR YELLOW
[2017-06-29 18:34] LABS: ANION GAP 5 (8-16); BLOOD UREA NITROGEN 18 mg/dL (7-18); CALCIUM 8.1 mg/dL (8.5-10.1); CHLORIDE 106 mmol/L (98-107); CO2 27 mmol/L (21-32); GLUCOSE,RANDOM 114 mg/dL (74-106); POTASSIUM 4.3 mmol/L (3.5-5.1); SGOT/AST 80 U/L (15-37); SODIUM 138 mmol/L (136-145)
[2017-06-29 18:50] LABS: ALK PHOS 80 U/L (45-117); BILIRUBIN,TOTAL 0.4 mg/dL (0.2-1.0); SGPT/ALT 61 U/L (12-78); TOT PROT 6.8 g/dl (6.4-8.2)
[2017-06-29] MEDS: ACETAMINOPHEN 325 MG TABLET (FP) PO PRN (21:09)
[2017-06-29] MEDS: MAG HYDROX/AL HYDROX/SIMETH 30 ML UNIT-DOSE CUP PO PRN (21:10)
[2017-06-29] MEDS: THIAMINE HCL 100 MG TABLET (FP) PO SCH (22:29)
[2017-06-29] MEDS: cloNIDine HCL 0.1 MG TABLET PO PRN (22:30)
[2017-06-29] MEDS: CYCLOBENZAPRINE HCL 10 MG TABLET (FP) PO PRN (22:30)
[2017-06-30] MEDS: SULFAMETHOXAZOLE/TRIMETHOPRIM 800MG/160MG D.S. TABLET PO SCH ×2 (09:53→22:21)
[2017-06-30] MEDS: diazePAM 5 MG TABLET PO PRN ×2 (09:53→22:34)
[2017-06-30] MEDS: PRENATAL VITAMINS W/ FOLIC ACID TABLET (FP) PO SCH (09:53)
[2017-06-30] MEDS ORDERED: METHADONE HCL 10 MG TABLET (FOR DETOX USE ONLY) PO ONE (10:00)
[2017-06-30] MEDS: CYCLOBENZAPRINE HCL 10 MG TABLET (FP) PO PRN ×2 (11:56→22:34)
--- NOTE | 2017-06-30 12:17 | PN ---
[facility] COWS - Scale Resting Pulse: 1= [place] 81-100 Sweatin=Flushed/Facial Moisture Restless Observation: 1= Difficult to Sit Still Pupil Size: 0= Normal to Room Light Bone or Joint Aches: 4=Acute Joint/Muscle Pain Runny Nose/ Eye Tearin= Nasal Congestion GI Upset > 30mins: 1= Stomach Cramp Tremor Observation of Outstretched Hands: 2= Slight Tremor Visible Yawning Observation: 1= 1-2x During Session Anxiety or Irritability: 4=Extreme Anxiety Goose Flesh Skin: 0=Smooth Skin COWS Score: 17 BHS Progress Note (SOAP) Subjective: Stomach Cramping, Sweating, Anxious, Body Aches, H/A. Objective: PT. A & O X 3, OBSERVED AMBULATING ON UNIT. NO ACUTE DISTRESS. 06/30/17 12:13 Vital Signs Temperature 98.8 F 06/30/17 09:38 Pulse Rate 96 H 06/30/17 09:38 Respiratory Rate 20 06/30/17 09:38 Blood Pressure 117/72 06/30/17 09:38 O2 Sat by Pulse Oximetry (%) Laboratory Tests 06/29/17 06/29/17 06/29/17 14:40 14:40 14:40 WBC 6.8 RBC 4.65 Hgb 13.8 Hct 39.8 MCV 85.7 MCH 29.7 MCHC 34.7 RDW 14.3 Plt Count 207 MPV 8.9 Sodium 138 Potassium 4.3 Chloride 106 Carbon Dioxide 27 Anion Gap 5 L BUN 18 Creatinine 1.0 Creat Clearance w eGFR > 60 Random Glucose 114 H Calcium 8.1 L Total Bilirubin 0.4 AST 80 H D ALT 61 Alkaline Phosphatase 80 Total Protein 6.8 Albumin 4.0 Urine Color Urine Appearance Urine pH Ur Specific [place] Urine Protein Urine Glucose (UA) Urine Ketones Urine Blood Urine Nitrite Urine Bilirubin Urine Urobilinogen Ur Leukocyte Esterase RPR Titer Nonreactive 06/29/17 14:40 WBC RBC Hgb Hct MCV MCH MCHC RDW Plt Count MPV Sodium Potassium Chloride Carbon Dioxide Anion Gap BUN Creatinine Creat Clearance w eGFR Random Glucose Calcium Total Bilirubin AST ALT Alkaline Phosphatase Total Protein Albumin Urine Color Yellow Urine Appearance Turbid Urine pH 5.0 Ur Specific [place] 1.029 Urine Protein Negative Urine Glucose (UA) Negative Urine Ketones Negative Urine Blood Negative Urine Nitrite Negative Urine Bilirubin Negative Urine Urobilinogen Negative Ur Leukocyte Esterase Negative RPR Titer LABS NOTED. Assessment: 06/30/17 12:15 WITHDRAWAL SYMPTOMS. Plan: CONTINUE DETOX. REPEAT AST ON 07/02/2017 FOR ELEVATED ADMISSION LEVEL. CLONIDINE, 0.1 MG PO X 1 FOR DETOX SYMPTOMS. INCREASE DAILY PO FLUID INTAKE.
[2017-06-30] MEDS ORDERED: cloNIDine HCL 0.1 MG TABLET PO ONE (12:45)
--- NOTE | 2017-06-30 13:37 | CONSULT ---
[facility] Psychiatric Consult - Data Date of interview: 06/30/17 Admission source: [facility] Identifying data: Readmission to [facility] for this 31 y/o male seeking detox treatment on for heroin,cocaine and phencyclidine dependence.Patient is single,a father of two,domiciled,unemployed and reportedly supported by relatives. Substance Abuse History: Smoking history: Former smoker. Have you smoked in the past 12 months: Yes. If you are a former smoker, when did you quit?: Approx. 2 weeks ago. Cigars Per Day: 0. Hx Chewing Tobacco Use: No. Initiated information on smoking cessation: Yes. 'Breaking Loose' booklet given : 06/29/17 (GIVEN TO PATIENT.). - Substance & Tx. History. Hx Alcohol Use: No. Hx Substance Use: Yes. Substance Use Type: Cocaine, Heroin. Hx Substance Use Treatment: Yes (Previous Detox admissions at [facility] (Last:04/2017);Rehab@ [facility]'s: 06/01). - Substances Abused. Heroin. Route: Injection. Frequency: Daily. Amount used: 8-9 bags. Age of first use: 29. Date of Last Use: 06/28/17. Cocaine. Route: Inhalation. Frequency: 1-2 times per week. Amount used: $200. Age of first use: 19. Date of Last Use: 06/28/17 Medical History: GERD,bronchial asthma and a history of abdominal herniorraphy ( 2014). Psychiatric History: Patient is NOT a reliable historian as evidenced by this self-reported,revised version of longitudinal background.Mr Kaur,in this encounter,declares a history of 2-4 psychiatric hospitalizations ([facility] + [facility]).Claimed the diagnoses of MDD and Anxiety Disorder and past treatment with klonopin (reportedly prescribed by primary care provider).No indication of past/current psychiatric OPD care.Off psychotropic medications for an unspecified period of time.Patient denies history of suicide attempts. Physical/Sexual Abuse/Trauma History: No history. Additional Comment: Urine Drug Screen Results: FRANCISCA-Cocaine, OPI-Opiates, MET- Methamphetamine, PCP-Phencyclidine, BZO-Benzodiazepines.Noted. Mental Status Exam - Mental Status Exam Alert and Oriented to: Time, Place, Person Cognitive Function: Good Patient Appearance: Disheveled (short stature,tattoos seen on both arms + forearms) Mood: Nervous, Withdrawn, Anxious Affect: Mood Congruent Patient Behavior: Fatigued, Uncooperative Speech Pattern: Clear Voice Loudness: Normal Thought Process: Intact, Goal Oriented Thought Disorder: Not Present Hallucinations: Denies Suicidal Ideation: Denies Homicidal Ideation: Denies Insight/Judgement: Poor Sleep: Well Appetite: Good Muscle strength/Tone: Normal Psychiatric Findings - Problem List ([place] 1, 2,3) (1) Opioid dependence with withdrawal Current Visit: Yes Status: Acute (2) Cocaine dependence, uncomplicated Current Visit: Yes Status: Acute (3) PCP dependence Current Visit: Yes Status: Acute (4) Nicotine dependence Current Visit: Yes Status: Acute Qualifiers: Nicotine product type: cigarettes Substance use status: uncomplicated Qualified Code(s): F17.210 - Nicotine dependence, cigarettes, uncomplicated (5) Substance induced mood disorder Current Visit: Yes Status: Acute - Initial Treatment Plan Initial Treatment Plan: Psychoeducation.Detoxification in progress.Observation.
[2017-06-30] MEDS: ACETAMINOPHEN 325 MG TABLET (FP) PO PRN (17:23)
[2017-06-30] MEDS: THIAMINE HCL 100 MG TABLET (FP) PO SCH (22:23)
[2017-07-01] MEDS: PRENATAL VITAMINS W/ FOLIC ACID TABLET (FP) PO SCH (09:47)
--- NOTE | 2017-07-01 09:48 | PN ---
[facility] COWS - Scale Resting Pulse: 1= [place] 81-100 Sweatin=Flushed/Facial Moisture Restless Observation: 1= Difficult to Sit Still Pupil Size: 0= Normal to Room Light Bone or Joint Aches: 4=Acute Joint/Muscle Pain Runny Nose/ Eye Tearin= Nasal Congestion GI Upset > 30mins: 2= Nausea/Diarrhea Tremor Observation of Outstretched Hands: 2= Slight Tremor Visible Yawning Observation: 0= None Anxiety or Irritability: 2=Irritable/Anxious Goose Flesh Skin: 0=Smooth Skin COWS Score: 15 BHS Progress Note (SOAP) Subjective: Body Aches, Anxious, Nausea, Fatigue, Sweating, Chills. Objective: PT. A & O X 3, OBSERVED AMBULATING ON UNIT. PT. DENIES CHEST PAIN. 07/01/17 09:46 Vital Signs Temperature 96.6 F L 07/01/17 06:21 Pulse Rate 91 H 07/01/17 06:21 Respiratory Rate 20 07/01/17 06:21 Blood Pressure 101/66 07/01/17 06:21 O2 Sat by Pulse Oximetry (%) Laboratory Tests 06/29/17 06/29/17 06/29/17 14:40 14:40 14:40 WBC 6.8 RBC 4.65 Hgb 13.8 Hct 39.8 MCV 85.7 MCH 29.7 MCHC 34.7 RDW 14.3 Plt Count 207 MPV 8.9 Sodium 138 Potassium 4.3 Chloride 106 Carbon Dioxide 27 Anion Gap 5 L BUN 18 Creatinine 1.0 Creat Clearance w eGFR > 60 Random Glucose 114 H Calcium 8.1 L Total Bilirubin 0.4 AST 80 H D ALT 61 Alkaline Phosphatase 80 Total Protein 6.8 Albumin 4.0 Urine Color Urine Appearance Urine pH Ur Specific [place] Urine Protein Urine Glucose (UA) Urine Ketones Urine Blood Urine Nitrite Urine Bilirubin Urine Urobilinogen Ur Leukocyte Esterase RPR Titer Nonreactive 06/29/17 14:40 WBC RBC Hgb Hct MCV MCH MCHC RDW Plt Count MPV Sodium Potassium Chloride Carbon Dioxide Anion Gap BUN Creatinine Creat Clearance w eGFR Random Glucose Calcium Total Bilirubin AST ALT Alkaline Phosphatase Total Protein Albumin Urine Color Yellow Urine Appearance Turbid Urine pH 5.0 Ur Specific [place] 1.029 Urine Protein Negative Urine Glucose (UA) Negative Urine Ketones Negative Urine Blood Negative Urine Nitrite Negative Urine Bilirubin Negative Urine Urobilinogen Negative Ur Leukocyte Esterase Negative RPR Titer LABS NOTED. Assessment: 07/01/17 09:47 WITHDRAWAL SYMPTOMS. Plan: CONTINUE DETOX. INCREASE DAILY PO FLUID INTAKE.
--- NOTE | 2017-07-01 09:54 | PN ---
[facility] Progress Note Note: Patient has elevated temp.: 101.1 BP: 110/58, P: 103, RR: 20; O2: 94%. Patient reporting severe body aches; malaise, profuse sweating, nausea, fatigue, that has been persisting since Detox admission. Patient reports occasional cough (non -productive) and nasal congestion. Patient denies chest pain, sore throat, and SOB. Report given to Dr. Jose Cruz Garcia at [facility]. Patient to be taken via ambulance to [facility] for further medical evaluation. Ambreen Smith NP
[2017-07-01] MEDS ORDERED: METHADONE HCL 5 MG TABLET (FOR DETOX USE ONLY) PO ONE (10:00)
[2017-07-01] MEDS: SULFAMETHOXAZOLE/TRIMETHOPRIM 800MG/160MG D.S. TABLET PO SCH ×2 (10:58→22:04)
--- NOTE | 2017-07-01 16:00 | PN ---
[facility] Progress Note Note: Received report from Dr. Camargo of [facility] stating that Flu Culture unable to be done on patient at this time due to the fact that they are currently out of the antigen swabs that are used for the Influenza culture. Therefore, Influenza cannot be deifinitively ruled out at this time. Aside from that, Dr. Camargo also reports that he believes that, based upon his assessment, patient might be in early stage of Pneumonia. Aside form that, Dr. Camargo finds no other medical ereason to admit patient at [facility] and he recommends that patient is cleared to be returned back to [facility] at [facility]. At Dr. Olson's recommendation, patient to be started on Z-Pack for possible pneumonia (first dose given to patient at [facility]). Remaining four doses ordered starting tomorrow (07/02/2017). As a precaution, patient to remain in isolation in his own room without roommate once he returns to Detox unit in [facility]. Ambreen Smith NP
[2017-07-01] MEDS: THIAMINE HCL 100 MG TABLET (FP) PO SCH (22:04)
[2017-07-02] MEDS ORDERED: METHADONE HCL 5 MG TABLET (FOR DETOX USE ONLY) PO ONE (10:00)
[2017-07-02] MEDS: PRENATAL VITAMINS W/ FOLIC ACID TABLET (FP) PO SCH (10:46)
[2017-07-02] MEDS: SULFAMETHOXAZOLE/TRIMETHOPRIM 800MG/160MG D.S. TABLET PO SCH ×2 (10:46→21:13)
[2017-07-02] MEDS: AZITHROMYCIN 250 MG TABLET PO SCH (10:46)
[2017-07-02 11:07] LABS: SGOT/AST 36 U/L (15-37); SGPT/ALT 58 U/L (12-78)
[2017-07-02] MEDS: CYCLOBENZAPRINE HCL 10 MG TABLET (FP) PO PRN (12:03)
[2017-07-02] MEDS: diazePAM 5 MG TABLET PO PRN (12:03)
[2017-07-02] MEDS ORDERED: COLLOIDAL OATMEAL 1 BAR EACH TP PRN (12:46)
[2017-07-02] MEDS: HYDROCORTISONE 1% TOPICAL CREAM 30 GM TUBE TP SCH ×2 (13:42→21:13)
--- NOTE | 2017-07-02 15:51 | PN ---
S Progress Note (SOAP) Subjective: ALERT,IRRITABLE,INTERRUPTED SLEEP,NO RESPIRATORY DIFFICULTY,AFERILE Vital Signs Temperature 98.5 F 07/02/17 13:44 Pulse Rate 86 07/02/17 13:44 Respiratory Rate 20 07/02/17 13:44 Blood Pressure 120/70 07/02/17 13:44 O2 Sat by Pulse Oximetry (%) Laboratory Last Values WBC 6.8 K/mm3 (4.0-10.0) 06/29/17 14:40 RBC 4.65 M/mm3 (4.00-5.60) 06/29/17 14:40 Hgb 13.8 GM/dL (11.7-16.9) 06/29/17 14:40 Hct 39.8 % (35.4-49) 06/29/17 14:40 MCV 85.7 fl (80-96) 06/29/17 14:40 MCH 29.7 pg (25.7-33.7) 06/29/17 14:40 MCHC 34.7 g/dl (32.0-35.9) 06/29/17 14:40 RDW 14.3 % (11.9-15.9) 06/29/17 14:40 Plt Count 207 K/MM3 (134-434) 06/29/17 14:40 MPV 8.9 fl (7.5-11.1) 06/29/17 14:40 Sodium 138 mmol/L (136-145) 06/29/17 14:40 Potassium 4.3 mmol/L (3.5-5.1) 06/29/17 14:40 Chloride 106 mmol/L (98-107) 06/29/17 14:40 Carbon Dioxide 27 mmol/L (21-32) 06/29/17 14:40 Anion Gap 5 (8-16) L 06/29/17 14:40 BUN 18 mg/dL (7-18) 06/29/17 14:40 Creatinine 1.0 mg/dL (0.7-1.3) 06/29/17 14:40 Creat Clearance w eGFR > 60 (>60) 06/29/17 14:40 Random Glucose 114 mg/dL (74-106) H 06/29/17 14:40 Calcium 8.1 mg/dL (8.5-10.1) L 06/29/17 14:40 Total Bilirubin 0.4 mg/dL (0.2-1.0) 06/29/17 14:40 AST 36 U/L (15-37) 07/02/17 08:00 ALT 58 U/L (12-78) D 07/02/17 08:00 Alkaline Phosphatase 80 U/L (45-117) 06/29/17 14:40 Total Protein 6.8 g/dl (6.4-8.2) 06/29/17 14:40 Albumin 4.0 g/dl (3.4-5.0) 06/29/17 14:40 Urine Color Yellow 06/29/17 14:40 Urine Appearance Turbid 06/29/17 14:40 Urine pH 5.0 (5.0-8.0) 06/29/17 14:40 Ur Specific [place] 1.029 (1.001-1.035) 06/29/17 14:40 Urine Protein Negative (NEGATIVE) 06/29/17 14:40 Urine Glucose (UA) Negative (NEGATIVE) 06/29/17 14:40 Urine Ketones Negative (NEGATIVE) 06/29/17 14:40 Urine Blood Negative (NEGATIVE) 06/29/17 14:40 Urine Nitrite Negative (NEGATIVE) 06/29/17 14:40 Urine Bilirubin Negative (NEGATIVE) 06/29/17 14:40 Urine Urobilinogen Negative mg/dL (0.2-1.0) 06/29/17 14:40 Ur Leukocyte Esterase Negative (NEGATIVE) 06/29/17 14:40 RPR Titer Nonreactive (NONREACTIVE) 06/29/17 14:40 Objective: 07/02/17 15:48 Vital Signs Temperature 98.5 F 07/02/17 13:44 Pulse Rate 86 07/02/17 13:44 Respiratory Rate 20 07/02/17 13:44 Blood Pressure 120/70 07/02/17 13:44 O2 Sat by Pulse Oximetry (%) Assessment: 07/02/17 15:48 WITHDRAWAL SYMPTOM TREATED FOR POSSIBLE PNEUMONIA WITH ZITHROMAX Plan: CONTINUE DETOX WITH ISOLATION PRECAUTION,SENSITIVE SKIN REQUESTED AVEENO SOAP
[2017-07-02] MEDS: MAG HYDROX/AL HYDROX/SIMETH 30 ML UNIT-DOSE CUP PO PRN (18:57)
[2017-07-02] MEDS: THIAMINE HCL 100 MG TABLET (FP) PO SCH (21:13)
[2017-07-03] MEDS ORDERED: METHADONE HCL 10 MG TABLET (FOR DETOX USE ONLY) PO ONE (10:00)
[2017-07-03] MEDS: PRENATAL VITAMINS W/ FOLIC ACID TABLET (FP) PO SCH (10:20)
[2017-07-03] MEDS: AZITHROMYCIN 250 MG TABLET PO SCH (10:20)
[2017-07-03] MEDS: HYDROCORTISONE 1% TOPICAL CREAM 30 GM TUBE TP SCH ×2 (10:20→21:52)
[2017-07-03] MEDS: SULFAMETHOXAZOLE/TRIMETHOPRIM 800MG/160MG D.S. TABLET PO SCH ×2 (10:20→21:52)
[2017-07-03] MEDS: MAG HYDROX/AL HYDROX/SIMETH 30 ML UNIT-DOSE CUP PO PRN ×2 (11:08→23:02)
[2017-07-03] MEDS: cloNIDine HCL 0.1 MG TABLET PO PRN ×2 (13:35→21:53)
[2017-07-03] MEDS ORDERED: hydrOXYzine PAMOATE 50 MG CAPSULE (FP) PO PRN (17:16)
--- NOTE | 2017-07-03 17:30 | PN ---
[facility] Progress Note (SOAP) Subjective: Body Aches, Sweating, Anxious. Objective: PT. A & O X 3, OBSERVED AMBULATING ON UNIT. NO ACUTE DISTRESS. 07/03/17 17:28 Vital Signs Temperature 96.8 F L 07/03/17 14:03 Pulse Rate 85 07/03/17 14:03 Respiratory Rate 20 07/03/17 14:03 Blood Pressure 105/69 07/03/17 14:03 O2 Sat by Pulse Oximetry (%) Laboratory Tests 06/29/17 06/29/17 06/29/17 14:40 14:40 14:40 WBC 6.8 RBC 4.65 Hgb 13.8 Hct 39.8 MCV 85.7 MCH 29.7 MCHC 34.7 RDW 14.3 Plt Count 207 MPV 8.9 Sodium 138 Potassium 4.3 Chloride 106 Carbon Dioxide 27 Anion Gap 5 L BUN 18 Creatinine 1.0 Creat Clearance w eGFR > 60 Random Glucose 114 H Calcium 8.1 L Total Bilirubin 0.4 AST 80 H D ALT 61 Alkaline Phosphatase 80 Total Protein 6.8 Albumin 4.0 Urine Color Urine Appearance Urine pH Ur Specific [place] Urine Protein Urine Glucose (UA) Urine Ketones Urine Blood Urine Nitrite Urine Bilirubin Urine Urobilinogen Ur Leukocyte Esterase RPR Titer Nonreactive 06/29/17 07/02/17 14:40 08:00 WBC RBC Hgb Hct MCV MCH MCHC RDW Plt Count MPV Sodium Potassium Chloride Carbon Dioxide Anion Gap BUN Creatinine Creat Clearance w eGFR Random Glucose Calcium Total Bilirubin AST 36 ALT 58 D Alkaline Phosphatase Total Protein Albumin Urine Color Yellow Urine Appearance Turbid Urine pH 5.0 Ur Specific [place] 1.029 Urine Protein Negative Urine Glucose (UA) Negative Urine Ketones Negative Urine Blood Negative Urine Nitrite Negative Urine Bilirubin Negative Urine Urobilinogen Negative Ur Leukocyte Esterase Negative RPR Titer LABS NOTED. Assessment: 07/03/17 17:28 WITHDRAWAL SYMPTOMS. Plan: CONTINUE DETOX. INCREASE DAILY PO FLUID INTAKE. PRECAUTION, PATIENT AGAIN ADVISED TO REMAIN IN HIS ROOM AND TO MOVE ABOUT UNIT ONLY WHEN ABSOLUTELY NECESSARY AND TO WEAR A MASK WHEN AMBULATING ABOUT UNIT.
[2017-07-03] MEDS: THIAMINE HCL 100 MG TABLET (FP) PO SCH (21:52)
[2017-07-04] MEDS ORDERED: METHADONE HCL 5 MG TABLET (FOR DETOX USE ONLY) PO ONE (06:00)
[2017-07-04] MEDS: PRENATAL VITAMINS W/ FOLIC ACID TABLET (FP) PO SCH (10:13)
[2017-07-04] MEDS: SULFAMETHOXAZOLE/TRIMETHOPRIM 800MG/160MG D.S. TABLET PO SCH (10:13)
[2017-07-04] MEDS: HYDROCORTISONE 1% TOPICAL CREAM 30 GM TUBE TP SCH (10:14)
[2017-07-04] MEDS: AZITHROMYCIN 250 MG TABLET PO SCH (10:14)
--- NOTE | 2017-07-04 10:36 | DS ---
[facility] Detox Discharge Summary Admission Date: 06/29/17 Discharge Date: 07/04/17 - History Present History: Cocaine Dependence, Opioid Dependence Additional Comments: DETOX COMPLETED. ALERT O X 3. NAD. PT REFERRED TO [address] [place], [place] [id number] FOR AFTERCARE. Pertinent Past History: SEE DX BELOW - Physical Exam Results Vital Signs: Vital Signs Temperature 97.8 F 07/04/17 09:34 Pulse Rate 75 07/04/17 09:34 Respiratory Rate 18 07/04/17 09:34 Blood Pressure 108/71 07/04/17 09:34 O2 Sat by Pulse Oximetry (%) Pertinent Admission Physical Exam Findings: WITHDRAWAL SX Laboratory Last Values WBC 6.8 K/mm3 (4.0-10.0) 06/29/17 14:40 RBC 4.65 M/mm3 (4.00-5.60) 06/29/17 14:40 Hgb 13.8 GM/dL (11.7-16.9) 06/29/17 14:40 Hct 39.8 % (35.4-49) 06/29/17 14:40 MCV 85.7 fl (80-96) 06/29/17 14:40 MCH 29.7 pg (25.7-33.7) 06/29/17 14:40 MCHC 34.7 g/dl (32.0-35.9) 06/29/17 14:40 RDW 14.3 % (11.9-15.9) 06/29/17 14:40 Plt Count 207 K/MM3 (134-434) 06/29/17 14:40 MPV 8.9 fl (7.5-11.1) 06/29/17 14:40 Sodium 138 mmol/L (136-145) 06/29/17 14:40 Potassium 4.3 mmol/L (3.5-5.1) 06/29/17 14:40 Chloride 106 mmol/L (98-107) 06/29/17 14:40 Carbon Dioxide 27 mmol/L (21-32) 06/29/17 14:40 Anion Gap 5 (8-16) L 06/29/17 14:40 BUN 18 mg/dL (7-18) 06/29/17 14:40 Creatinine 1.0 mg/dL (0.7-1.3) 06/29/17 14:40 Creat Clearance w eGFR > 60 (>60) 06/29/17 14:40 Random Glucose 114 mg/dL (74-106) H 06/29/17 14:40 Calcium 8.1 mg/dL (8.5-10.1) L 06/29/17 14:40 Total Bilirubin 0.4 mg/dL (0.2-1.0) 06/29/17 14:40 AST 36 U/L (15-37) 07/02/17 08:00 ALT 58 U/L (12-78) D 07/02/17 08:00 Alkaline Phosphatase 80 U/L (45-117) 06/29/17 14:40 Total Protein 6.8 g/dl (6.4-8.2) 06/29/17 14:40 Albumin 4.0 g/dl (3.4-5.0) 06/29/17 14:40 Urine Color Yellow 06/29/17 14:40 Urine Appearance Turbid 06/29/17 14:40 Urine pH 5.0 (5.0-8.0) 06/29/17 14:40 Ur Specific [place] 1.029 (1.001-1.035) 06/29/17 14:40 Urine Protein Negative (NEGATIVE) 06/29/17 14:40 Urine Glucose (UA) Negative (NEGATIVE) 06/29/17 14:40 Urine Ketones Negative (NEGATIVE) 06/29/17 14:40 Urine Blood Negative (NEGATIVE) 06/29/17 14:40 Urine Nitrite Negative (NEGATIVE) 06/29/17 14:40 Urine Bilirubin Negative (NEGATIVE) 06/29/17 14:40 Urine Urobilinogen Negative mg/dL (0.2-1.0) 06/29/17 14:40 Ur Leukocyte Esterase Negative (NEGATIVE) 06/29/17 14:40 RPR Titer Nonreactive (NONREACTIVE) 06/29/17 14:40 CXR RIGHT BASE INFILTRATE---CURRENT TREATMENT WITH ZITHROMAX AND BACTRIM - Treatment Hospital Course: Detox Protocol Followed, Detoxed Safely, Responded well, Discharged Condition Good, Rehab Referral Accepted Patient has Accepted a Rehab Referral to: [address] [place], [place] [address] - Medication Discharge Medications: Ambulatory Orders Albuterol Sulfate Inhaler - [Ventolin Hfa Inhaler -] 2 inh PO Q4H PRN 06/29/17 Acetaminophen [Tylenol] 650 mg PO PRN 07/01/17 Clonidine HCl [Clonidine HCl ER] 0.1 mg PO PRN 07/01/17 Cyclobenzaprine HCl 10 mg PO PRN 07/01/17 Diazepam 10 mg PO PRN 07/01/17 Guaifenesin AC [Robitussin AC] 10 ml PO Q6H 07/01/17 Ibuprofen 400 mg PO PRN 07/01/17 Loperamide HCl [Ultra A-D] 4 mg PO PRN 07/01/17 Magnesium Citrate [Citroma -] 300 ml PO PRN 07/01/17 Methadone [Dolophine -] 15 mg PO DAILY 07/01/17 Sulfamethoxazole/Trimethoprim [Bactrim Ds Tablet] 1 each PO BID 07/01/17 Thiamine HCl [B-1] 100 mg PO DAILY 07/01/17 - Diagnosis (1) Cocaine dependence, uncomplicated Current Visit: Yes Status: Acute (2) Nicotine dependence Current Visit: Yes Status: Acute Qualifiers: Nicotine product type: cigarettes Substance use status: uncomplicated Qualified Code(s): F17.210 - Nicotine dependence, cigarettes, uncomplicated (3) Opioid dependence with withdrawal Current Visit: Yes Status: Acute (4) Asthma Current Visit: Yes Status: Chronic Qualifiers: Asthma severity: mild Asthma persistence: intermittent Asthma complication type: uncomplicated Qualified Code(s): J45.20 - Mild intermittent asthma, uncomplicated (5) Pneumonia Current Visit: No Status: Acute Qualifiers: Pneumonia type: due to unspecified organism Laterality: right Lung location: unspecified part of lung Qualified Code(s): J18.9 - Pneumonia, unspecified organism (6) Abscess of right upper extremity Current Visit: Yes Status: Acute - AMA Did Patient Leave Against Medical Advice: No
[2017-07-04 13:19] VITALS: BP 120/58; PULSE 69; TEMP 97.6
--- NOTE | 2017-07-07 11:46 | EKG ---
Test Reason : Blood Pressure : / mmHG Vent. Rate : 067 BPM Atrial Rate : 067 BPM P-R Int : 000 ms QRS Dur : 094 ms QT Int : 456 ms P-R-T Axes : 000 181 197 degrees QTc Int : 481 ms PROBABLE ECTOPIC ATRIAL RHYTHM RIGHT SUPERIOR AXIS DEVIATION NONSPECIFIC T WAVE ABNORMALITY NON-SPECIFIC INTRA-VENTRICULAR CONDUCTION DELAY ABNORMAL ECG Confirmed by TRISTAN MCKEON MD ([id number]) on 06/30/2017 9:21:44 AM Also confirmed by TRISTAN MCKEON MD ([id number]), editor in chief newspaper LISBETH MONTGOMERY ([id number]) on 07/07/2017 11:46:20 AM Referred By: Confirmed By:TRISTAN MCKEON MD
== END 2017-07-04 13:20 | disposition other institution (70) | DRG 773 ==
LOC: YASAS 10:36 → Y3N 13:47
PROVIDERS: ADMIT Internal Medicine; ATTEND Internal Medicine
PROC: HZ2ZZZZ Detoxification Services for Substance Abuse Treatment (ICD-10-PCS; principal; 2017-06-29)
DX: F11.23 Opioid dependence with withdrawal (principal); F14.20 Cocaine dependence, uncomplicated; F16.20 Hallucinogen dependence, uncomplicated; F17.210 Nicotine dependence, cigarettes, uncomplicated; F19.24 Other psychoactive substance dependence with psychoactive substance-induced mood disorder; F32.0 Major depressive disorder, single episode, mild; F41.8 Other specified anxiety disorders; J45.20 Mild intermittent asthma, uncomplicated; J18.9 Pneumonia, unspecified organism; L02.413 Cutaneous abscess of right upper limb
CPT/HCPCS: 36415; 80053; 81003; 84450; 84460; 85027; 86593; 93005; 93010; J0735

== ENCOUNTER 2017-07-01 10:24 | Emergency (ER) | payer OTHER ==
[2017-07-01 10:34] VITALS: BMI 31.9
[2017-07-01] MEDS ORDERED: KETOROLAC TROMETHAMINE 30 MG/1 ML VIAL IVPUSH ONE (11:09)
[2017-07-01] MEDS ORDERED: METOCLOPRAMIDE HCL INJECTION 10 MG/2 ML VIAL IVPUSH ONE (11:09)
[2017-07-01] MEDS ORDERED: SODIUM CHLORIDE 1,000 ML IV STA (11:09)
[2017-07-01] MEDS ORDERED: FAMOTIDINE IV 20 MG/12 ML VIAL IVPUSH ONE (11:10)
--- NOTE | 2017-07-01 11:24 | PDOC ---
History of Present Illness - General History Source: Patient Exam Limitations: No Limitations - History of Present Illness Initial Comments: 07/01/17 12:30 The patient is a 31-year-old male, with a significant past medical history of asthma, GERD, polysubstance abuse (cocaine and heroin but no IV drug use), who presents to the ED with a few days of cough, nausea, vomiting, right-sided abdominal pain.The patient was sent in from [address] [place] [address]. On exam, he reports having a nonproductive cough, nasal congestion, and headache; he states that he feels dehydrated and weak. He also reports right-sided flank pain, loss of appetite, and states that he has been taking antibiotics for a skin infection on his right forearm. He describes the flank pain as sharp in sensation and a 10 /10 in severity. The patient denies any fever, chills, or diarrhea. He denies any changes in urination. Allergies: NKDA Past surgical history: Hernia repair (2014) Social history: Current everyday smoker, drinks socially. Reports cocaine and heroin use. <Gale Zheng - Last Filed: 07/01/17 12:30> - General History Source: Patient Exam Limitations: No Limitations <Russell Camargo - Last Filed: 07/01/17 15:43> - General Chief Complaint: Respiratory Stated Complaint: FLU SYMPTOMS Time Seen by Provider: 07/01/17 10:29 Past History <Gale Zheng - Last Filed: 07/01/17 12:30> - Past Medical History Anemia: No Asthma: Yes (Uses Albuterol / Ventolin Inhaler PRN.) Cancer: No Cardiac Disorders: No CVA: No COPD: No CHF: No Dementia: No Diabetes: No GI Disorders: No Disorders: No HTN: No Hypercholesterolemia: No Kidney Stones: No Liver Disease: No Seizures: No Thyroid Disease: No - Surgical History Abdominal Surgery: Yes (ABD HERNIA REPAIR IN 2014) Appendectomy: No Cardiac Surgery: No Cholecystectomy: No Lung Surgery: No Neurologic Surgery: No Orthopedic Surgery: No - Reproductive History Testicular Surgery: No - Suicide/Smoking/Psychosocial Hx Smoking Status: No Smoking History: Current every day smoker Have you smoked in the past 12 months: Yes Number of Cigarettes Smoked Daily: 5 If you are a former smoker, when did you quit?: Approx. 2 weeks ago. Cigars Per Day: 0 Information on smoking cessation initiated: No 'Breaking Loose' booklet given: 06/29/17 (GIVEN TO PATIENT.) Hx Alcohol Use: No Drug/Substance Use Hx: Yes Substance Use Type: Cocaine, Heroin Hx Substance Use Treatment: Yes (Previous Detox admissions at [facility] (Last:04/2017 );Rehab@ [facility]'s: 06/01) <Russell Camargo - Last Filed: 07/01/17 15:43> - Past Medical History Allergies/Adverse Reactions: Allergies Allergy/AdvReac Type Severity Reaction Status Date / Time No Known Allergies Allergy Verified 07/01/17 10:25 Home Medications: Ambulatory Orders Albuterol Sulfate Inhaler - [Ventolin Hfa Inhaler -] 2 inh PO Q4H PRN 06/29/17 Acetaminophen [Tylenol] 650 mg PO PRN 07/01/17 Clonidine HCl [Clonidine HCl ER] 0.1 mg PO PRN 07/01/17 Cyclobenzaprine HCl 10 mg PO PRN 07/01/17 Diazepam 10 mg PO PRN 07/01/17 Guaifenesin AC [Robitussin AC] 10 ml PO Q6H 07/01/17 Ibuprofen 400 mg PO PRN 07/01/17 Loperamide HCl [Ultra A-D] 4 mg PO PRN 07/01/17 Magnesium Citrate [Citroma -] 300 ml PO PRN 07/01/17 Methadone [Dolophine -] 15 mg PO DAILY 07/01/17 Sulfamethoxazole/Trimethoprim [Bactrim Ds Tablet] 1 each PO BID 07/01/17 Thiamine HCl [B-1] 100 mg PO DAILY 07/01/17 Review of Systems - Review of Systems Able to Perform ROS?: Yes Comments:: 07/01/17 12:31 GENERAL/CONSTITUTIONAL: (+)Fever, loss of appetite, weakness. No chills. HEAD, EYES, EARS, NOSE AND THROAT: No change in vision. No ear pain or discharge. No sore throat. CARDIOVASCULAR: No chest pain or shortness of breath. RESPIRATORY: (+)Cough. No wheezing, or hemoptysis. GASTROINTESTINAL: (+)nausea, vomiting. No diarrhea or constipation. GENITOURINARY: No dysuria, frequency, or change in urination. MUSCULOSKELETAL: No joint or muscle swelling or pain. No neck or back pain. SKIN: No rash NEUROLOGIC: (+)Headache. No vertigo, loss of consciousness, or change in strength/sensation. ENDOCRINE: No increased thirst. No abnormal weight change. HEMATOLOGIC/LYMPHATIC: No anemia, easy bleeding, or history of blood clots. ALLERGIC/IMMUNOLOGIC: No hives or skin allergy. <Gale Zheng - Last Filed: 07/01/17 12:30> *Physical Exam - Vital Signs Last Vital Signs Temp Pulse Resp BP Pulse Ox 100.6 F H 95 H 20 117/66 97 07/01/17 10:25 07/01/17 10:25 07/01/17 10:25 07/01/17 10:25 07/01/17 10:25 - Physical Exam Comments: 07/01/17 12:40 GENERAL: Awake, alert, and fully oriented, in no acute distress HEAD: No signs of trauma EYES: PERRLA, EOMI, sclera anicteric, conjunctiva clear ENT: (+)Dry mucous membranes. NECK: Normal ROM, supple, no lymphadenopathy, JVD, or masses LUNGS: Breath sounds equal, clear to auscultation bilaterally. No wheezes, and no crackles HEART: Regular rate and rhythm, normal S1 and S2, no murmurs, rubs or gallops ABDOMEN: (+)Right upper quadrant pain, mid-abdominal tenderness. Soft, normoactive bowel sounds. No guarding, no rebound. No masses MSK: (+)Right CVA tenderness. EXTREMITIES: Normal range of motion, no edema. No clubbing or cyanosis. No cords, erythema, or tenderness NEUROLOGICAL: Cranial nerves II through XII grossly intact. Normal speech, normal gait SKIN: Warm, Dry, normal turgor, no rashes or lesions noted <Gale Zheng - Last Filed: 07/01/17 12:30> - Vital Signs Last Vital Signs Temp Pulse Resp BP Pulse Ox 100.6 F H 95 H 20 117/66 97 07/01/17 10:25 07/01/17 10:25 07/01/17 10:25 07/01/17 10:25 07/01/17 10:25 <Russell Camargo - Last Filed: 07/01/17 15:43> Heart Score/ECG Review #1 ECG reviewed & interpreted by me at: 12:40 07/01/17 14:55 NSR 78, TWI III, no std/brody, normal axis, normal intervals, QTC 408 msec <Russell Camargo - Last Filed: 07/01/17 15:43> ED Treatment Course - LABORATORY CBC & Chemistry Diagram: 07/01/17 11:38 07/01/17 11:38 - ADDITIONAL ORDERS Additional order review: Laboratory Results 07/01/17 11:38 PT with INR 13.20 H INR 1.17 H PTT (Actin FS) 32.9 07/01/17 11:38 RBC 4.22 MCV 85.4 MCHC 34.8 RDW 14.1 MPV 8.1 Neutrophils % 76.8 D Lymphocytes % 5.7 L D Monocytes % 9.2 Eosinophils % 8.2 H D Basophils % 0.1 - Medications Given in the ED: ED Medications Discontinued Medications Generic Name Dose Route Start Last Admin Trade Name Freq PRN Reason Stop Dose Admin Famotidine 20 mg in 12 mls @ 144 mls/hr 07/01/17 11:10 07/01/17 12:18 Pepcid 20 Mg/12 Ml Push IVPUSH 07/01/17 11:14 144 mls/hr ONCE ONE Administration Sodium Chloride 1,000 mls @ 1,000 mls/hr 07/01/17 11:09 07/01/17 12:17 Normal Saline - IV 07/01/17 12:08 1,000 mls/hr ASDIR STA Administration Ketorolac Tromethamine 30 mg 07/01/17 11:09 07/01/17 12:17 Toradol Injection - IVPUSH 07/01/17 11:10 30 mg ONCE ONE Administration Metoclopramide HCl 10 mg 07/01/17 11:09 07/01/17 12:17 Reglan Injection - IVPUSH 07/01/17 11:10 10 mg ONCE ONE Administration <Gale Zheng - Last Filed: 07/01/17 12:30> - LABORATORY CBC & Chemistry Diagram: 07/01/17 11:38 07/01/17 11:38 - RADIOLOGY Radiology Studies Ordered: Category Date Time Status SPIRAL- RENAL-STONE CT [CT] Stat CT Scan 07/01/17 11:09 Ordered CHEST X-RAY PORTABLE* [RAD] Stat Radiology 07/01/17 11:07 Ordered ABDOMEN US -LIMITED [US] Stat Ultrasound 07/01/17 11:09 Ordered <Mary JoRussell - Last Filed: 07/01/17 15:43> Medical Decision Making - Medical Decision Making 07/01/17 11:18 A portion of this note was documented by scribe services under my direction. I have reviewed the details of the note, within reason, and agree with the documentation with the following case summary and management plan written by me. Patient treated in the ED. Nursing notes are reviewed and incorporated into the medical decision-making. Vital signs reviewed. Peripheral IV access obtained by the nurse, laboratory studies are drawn and sent, reviewed and interpreted by myself. Vital Signs Temp Pulse Resp BP Pulse Ox 100.6 F H 95 H 20 117/66 97 07/01/17 10:25 07/01/17 10:25 07/01/17 10:25 07/01/17 10:25 07/01/17 10:25 31-year-old female with past medical history of polysubstance abuse, never IV drug use according to the patient, sent in from rehabilitation [address] for nausea, vomiting, right-sided abdominal pain and cough for several days. Patient reports that he's been having a nonproductive cough and nasal congestion and being feeling dehydrated and generally weak. Does not think this is withdrawal symptoms. Stated that he's been feeling right flank pain with right upper quadrant pain and some nausea or vomiting. Denies diarrhea. Does not think you sick contacts. Patient has decreased appetite and was sent to the ER. Differential includes viral syndrome, influenza, biliary colic, acute cholecystitis, polynephritis, kidney stones, colitis, appendicitis. We'll obtain labs, CAT scan and pelvis, right upper quadrant ultrasound. Treat symptoms. Hospital does not have anymore influenza antigen so will not send. Reassess. 07/01/17 15:34 CBC, BMP 07/01/17 11:38 07/01/17 11:38 CMP Sodium 133 mmol/L (136-145) L 07/01/17 11:38 Potassium 4.5 mmol/L (3.5-5.1) 07/01/17 11:38 Chloride 100 mmol/L (98-107) 07/01/17 11:38 Carbon Dioxide 28 mmol/L (21-32) 07/01/17 11:38 Anion Gap 5 (8-16) L 07/01/17 11:38 BUN 15 mg/dL (7-18) 07/01/17 11:38 Creatinine 1.1 mg/dL (0.7-1.3) 07/01/17 11:38 Creat Clearance w eGFR > 60 (>60) 07/01/17 11:38 Random Glucose 93 mg/dL (74-106) 07/01/17 11:38 Lactic Acid 0.8 mmol/L (0.0-2.0) 07/01/17 11:50 Calcium 8.2 mg/dL (8.5-10.1) L 07/01/17 11:38 Phosphorus 2.9 mg/dL (2.5-4.9) 07/01/17 11:38 Magnesium 2.2 mg/dL (1.8-2.4) 07/01/17 11:38 Total Bilirubin 0.4 mg/dL (0.2-1.0) 07/01/17 11:38 AST 35 U/L (15-37) D 07/01/17 11:38 ALT 46 U/L (12-78) D 07/01/17 11:38 Alkaline Phosphatase 56 U/L (45-117) D 07/01/17 11:38 Creatine Kinase 329 IU/L (39-308) H 07/01/17 11:38 Creatine Kinase Index 0.4 % (0.0-5.0) 07/01/17 11:38 CK-MB (CK-2) 1.389 ng/mL (0.5-3.6) 07/01/17 11:38 Troponin I < 0.02 ng/ml (0.00-0.05) 07/01/17 11:38 Total Protein 6.5 g/dl (6.4-8.2) 07/01/17 11:38 Albumin 3.4 g/dl (3.4-5.0) 07/01/17 11:38 Chest radiograph demonstrates ?possible early right base infiltrate. CT abdomen and pelvis shows enlarged spleen and bilateral lymphadenopathy. Enlarged spleen is chronic. Lymphadenopathy is likely secondary to illness. However, I had explained to the patient that with an enlarged spleen and with lymphadenopathy, it should be checked by a doctor for possible malignancy i.e. lymphoma. Pt was given a copy of the CT scan to which he will follow up on. Ultrasound unremarkable. UA unremarkable. Patient otherwise is nontoxic appearing, breathing comfortably, and improved. Will initiate azithromycin for the chest xray finding. I had discussed the findings and plans with Mr. To at [address] [place] [address] and RN Jessica Batista who accepts the patient back to [address] [place] [address]. <Russell Camargo - Last Filed: 07/01/17 15:43> *DC/Admit/Observation/Transfer - Attestations Scribe Attestion: 07/01/17 12:43 Documentation prepared by Gale Zheng, acting as medical editor for Russell Camargo MD. <Gale Zheng - Last Filed: 07/01/17 12:30> <Russell Camargo - Last Filed: 07/01/17 15:43> Diagnosis at time of Disposition: Pneumonia Qualifiers: Pneumonia type: due to unspecified organism Laterality: right Lung location: unspecified part of lung Qualified Code(s): J18.9 - Pneumonia, unspecified organism - Discharge Dispostion Disposition: TRANSFER ACUTE CARE/OTHER HOSP Condition at time of disposition: Stable - Referrals Referrals: ON STAFF,NOT [Primary Care Provider] - - Patient Instructions Printed Discharge Instructions: DI for Pneumonia -- Adult Additional Instructions: You have received 500 mg azithromycin here in the ED. Please take 250 mg azithromycin PO daily for four more days. Complete the course. You may take 600 mg ibuprofen every 6 hours as needed for pain. Your CT scan of your abdomen and pelvis shows enlarged bilateral lymph nodes. This is likely from your illness. However, if these remained enlarged after your illness, it is very important that you follow up with your doctor as these will need to be taken a look at it. For example, as we had discussed, such as lymphoma.
[2017-07-01 12:08] LABS: BASO % 0.1 % (0-2.0); EOS % 8.2 % (0-4.5); HEMATOCRIT 36.1 % (35.4-49); HEMOGLOBIN 12.5 GM/dL (11.7-16.9); LYMPH % 5.7 % (8-40); MCH 29.7 pg (25.7-33.7); MCHC 34.8 g/dl (32.0-35.9); MEAN CELL VOLUME 85.4 fl (80-96); MEAN PLT VOLUME 8.1 fl (7.5-11.1); MONO % 9.2 % (3.8-10.2); NEUT % 76.8 % (42.8-82.8); PLATELET COUNT 137 K/MM3 (134-434); RBC 4.22 M/mm3 (4.00-5.60); RDW 14.1 % (11.9-15.9); WHITE BLOOD COUNT 6.2 K/mm3 (4.0-10.0)
[2017-07-01] MEDS ORDERED: METOCLOPRAMIDE HCL INJECTION 10 MG/2 ML VIAL ONE (12:09)
[2017-07-01] MEDS ORDERED: KETOROLAC TROMETHAMINE 30 MG/1 ML VIAL ONE (12:10)
[2017-07-01] MEDS ORDERED: FAMOTIDINE 20 MG/50 ML IVPB 20 MG/50 ML MG IVPB ONE (12:10)
[2017-07-01 12:20] LABS: INR 1.17 (0.82-1.09); PROTHROMBIN TIME (PATIENT) 13.2 SEC (9.98-11.88)
[2017-07-01 12:23] LABS: ACTIVATED PTT 32.9 SECONDS (26.9-34.4)
[2017-07-01 12:41] LABS: MAGNESIUM 2.2 mg/dL (1.8-2.4); PHOSPHOROUS 2.9 mg/dL (2.5-4.9)
[2017-07-01 12:42] LABS: ALBUMIN 3.4 g/dl (3.4-5.0); ANION GAP 5 (8-16); BILIRUBIN,TOTAL 0.4 mg/dL (0.2-1.0); BLOOD UREA NITROGEN 15 mg/dL (7-18); CALCIUM 8.2 mg/dL (8.5-10.1); CHLORIDE 100 mmol/L (98-107); CO2 28 mmol/L (21-32); CREATININE 1.1 mg/dL (0.7-1.3); GLUCOSE,RANDOM 93 mg/dL (74-106); POTASSIUM 4.5 mmol/L (3.5-5.1); SGOT/AST 35 U/L (15-37); SGPT/ALT 46 U/L (12-78); SODIUM 133 mmol/L (136-145); TOT PROT 6.5 g/dl (6.4-8.2)
[2017-07-01 12:45] LABS: ALK PHOS 56 U/L (45-117)
[2017-07-01 15:15] LABS: URINE APPEARANCE CLEAR; URINE BILIRUBIN NEGATIVE (NEGATIVE); URINE BLOOD NEGATIVE (NEGATIVE); URINE COLOR YELLOW; URINE GLUCOSE (UA) NEGATIVE (NEGATIVE); URINE KETONE NEGATIVE (NEGATIVE); URINE LEUK ESTERASE NEGATIVE (NEGATIVE); URINE NITRITE NEGATIVE (NEGATIVE); URINE PROTEIN NEGATIVE (NEGATIVE); URINE UROBILINOGEN 4.0 E.U/dl mg/dL (0.2-1.0)
[2017-07-01] MEDS ORDERED: AZITHROMYCIN 250 MG TABLET PO ONE (15:32)
[2017-07-01] MEDS ORDERED: AZITHROMYCIN 250 MG TABLET ONE (15:40)
[2017-07-01 17:55] VITALS: BP 98/52; PULSE 78; TEMP 98.5
--- NOTE | 2017-07-02 11:09 | EKG ---
Test Reason : Blood Pressure : / mmHG Vent. Rate : 078 BPM Atrial Rate : 078 BPM P-R Int : 124 ms QRS Dur : 090 ms QT Int : 358 ms P-R-T Axes : 014 000 -07 degrees QTc Int : 408 ms NORMAL SINUS RHYTHM NORMAL ECG WHEN COMPARED WITH ECG OF 29-JUN-2017 15:43, PREVIOUS ECG HAS UNDETERMINED RHYTHM, NEEDS REVIEW QRS AXIS SHIFTED RIGHT NON-SPECIFIC CHANGE IN ST SEGMENT IN LATERAL LEADS T WAVE INVERSION NO LONGER EVIDENT IN LATERAL LEADS QT HAS SHORTENED Confirmed by NATHANIEL ALBERTO, EDIL ([id number]) on 07/02/2017 11:09:31 AM Referred By: Confirmed By:EDIL ARMSTRONG MD
== END 2017-07-01 18:39 | disposition short-term general hospital (02) ==
LOC: JER 10:24
PROC: 3E0337Z Introduction of Electrolytic and Water Balance Substance into Peripheral Vein, Percutaneous Approach (ICD-10-PCS; principal; 2017-07-01)
PROC: 3E0333Z Introduction of Anti-inflammatory into Peripheral Vein, Percutaneous Approach (ICD-10-PCS; 2017-07-01)
PROC: 3E033GC Introduction of Other Therapeutic Substance into Peripheral Vein, Percutaneous Approach (ICD-10-PCS; 2017-07-01)
PROC: 3E033GC Introduction of Other Therapeutic Substance into Peripheral Vein, Percutaneous Approach (ICD-10-PCS; 2017-07-01)
DX: J18.9 Pneumonia, unspecified organism (principal); R51 Headache; F14.20 Cocaine dependence, uncomplicated; F11.20 Opioid dependence, uncomplicated
CPT/HCPCS: 36415; 71045-TC-FY; 74176; 76705-TC; 80053; 81003; 82550; 82553; 83605; 83735; 84100; 84484; 85025; 85610; 85730; 86850; 86900; 86901; 87040; 87086; 93005; 93010; 99284-25